=== PATIENT | male | born 1975 | race Caucasian/White ===

== ENCOUNTER 2019-01-15 18:07 | Emergency (ER) | payer OTHER ==
[~2019-01-15] VITALS: Ht 185.4 cm; Wt 93.0 kg
--- NOTE | ~2019-01-15 | EKG ---
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
[~2019-01-15 18:07] MED LIST: ALEVE220 MG PO; ANAPROX DS550 MG PO; CEFDINIR300 MG PO; NORCO 5-325 TA1 EACH PO; ROBAXIN500 MG PO; ZPAK PO
[2019-01-15] MEDS ORDERED: CO Q-10100 MG PO (18:31)
[2019-01-15] MEDS ORDERED: CRESTOR10 MG PO (18:31)
[2019-01-15] MEDS ORDERED: FISH OIL 1,001000 M2 PO (18:31)
[2019-01-15] MEDS ORDERED: [UNRECOGNIZED DRUG - MIXTURE] (18:33)
[2019-01-15 19:01] LABS: HEMATOCRIT 42.2 % (42.0-52.0); HEMOGLOBIN 14.7 gm/dL (14.0-18.0); MCH 31.5 pg (26.0-34.0); MCHC 34.9 g/dL (28.0-37.0); MCV 90.3 fL (80.0-100.0); MPV 8.8 fl. (7.2-11.1); NUCLEATED RBCS 0 /100WBC; PLATELET COUNT* 183 thou/uL (150-400); RBC 4.67 mil/uL (4.50-6.00); RDW-CV 13.1 % (10.5-14.5); WBC 14.4 thou/uL (4.0-11.0)
[2019-01-15 19:20] LABS: URINE BILIRUBIN NEGATIVE (Negative); URINE BLOOD NEGATIVE (Negative); URINE CLARITY CLEAR; URINE COLOR YELLOW; URINE GLUCOSE-RANDOM NEGATIVE (Negative); URINE LEUKOCYTES-REFLEX NEGATIVE (Negative); URINE NITRITE-REFLEX NEGATIVE (Negative); URINE PROTEIN TRACE (Negative)
[2019-01-15 19:20] LABS: ANION GAP 14 mmol/L (7-16); BUN 13 mg/dL (7-18); CALCIUM 8.9 mg/dL (8.5-10.1); CHLORIDE 100 mmol/L (98-107); CO2 23 mmol/L (21-32); CREATININE 1.1 mg/dL (0.6-1.3); GLUCOSE 122 mg/dL (70-99); POTASSIUM 3.8 mmol/L (3.5-5.1); SODIUM 137 mmol/L (136-145); TROPONIN-I LEVEL <0.06 ng/mL (<0.06)
[2019-01-15 19:21] LABS: URINE KETONES 3+ (Negative)
[2019-01-15 19:27] LABS: ALKALINE PHOSPHATASE 95 U/L (46-116); NT-PRO BRAIN NAT PEPTIDE 42 pg/mL (<300); SGOT 20 U/L (15-37); SGPT 47 U/L (30-65); TOTAL BILIRUBIN 0.6 mg/dL (<0.1-1.0)
[2019-01-15 19:40] LABS: INFLUENZA A ANTIGEN None Detected (None Detect); INFLUENZA B ANTIGEN None Detected (None Detect)
[2019-01-15 19:43] LABS: ABSOLUTE BASOPHILS 0.1 thou/uL (0.0-0.2); ABSOLUTE MONOCYTES 0.7 thou/uL (0.0-1.2); ABSOLUTE NEUTROPHILS 12.5 thou/uL (1.6-8.1); ATYPICAL LYMPHS 1 %; PLATELET ESTIMATE ADEQUATE
[2019-01-15 21:00] VITALS: BP 120/65
== END 2019-01-15 21:00 | disposition home or self-care (01) ==
LOC: M.ERS 18:07
PROVIDERS: Physician Assistant
DX: E86.0 Dehydration (principal); B34.9 Viral infection, unspecified; I48.91 Unspecified atrial fibrillation